=== PATIENT | male | born 1985 | race African-American/Black ===

== ENCOUNTER 2019-10-08 17:26 | Emergency (ER) | payer OTHER ==
[~2019-10-08] VITALS: Ht 185.4 cm; Wt 91.2 kg
[~2019-10-08 17:26] MED LIST: ADDERALL XR 2020 MG PO
[2019-10-08 19:42] LABS: ABSOLUTE NEUTROPHILS 3.1 thou/uL (1.4-8.2); BASOPHILS 0.7 % (0.0-2.0); EOSINOPHILS 1.9 % (0.0-3.0); HEMATOCRIT 42.9 % (42.0-52.0); HEMOGLOBIN 14.6 gm/dL (14.0-18.0); LYMPHOCYTES 37.5 % (24.0-44.0); MCH 30.1 pg (26.0-34.0); MCHC 34.2 g/dL (28.0-37.0); MCV 88.1 fL (80.0-100.0); MONOCYTES 9.4 % (1.0-8.0); PLATELET COUNT 307 thou/uL (150-400); POLYS 50.5 % (36.0-66.0); RBC 4.87 mil/uL (4.50-6.00); RDW 14.2 % (10.5-14.5); WBC 6.2 thou/uL (4.0-11.0)
[2019-10-08 19:54] LABS: CALCIUM 8.6 mg/dL (8.5-10.1); CREATININE 1.5 mg/dL (0.7-1.3); POTASSIUM 3.6 mmol/L (3.5-5.1)
[2019-10-08 19:56] LABS: AMP/METHAMP POSITIVE (Negative); BARBITURATES Negative (Negative); BENZODIAZEPINES Negative (Negative); COCAINE Negative (Negative); METHADONE Negative (Negative); OPIATES Negative (Negative); PCP Negative (Negative)
[2019-10-08 20:00] LABS: ALBUMIN 3.7 g/dL (3.4-5.0); TOTAL BILIRUBIN 1.2 mg/dL (0.2-1.0); TOTAL PROTEIN 6.9 g/dL (6.4-8.2)
[2019-10-10 08:22] VITALS: BP 125/73
== END 2019-10-10 09:04 | disposition home or self-care (01) ==
LOC: ER 17:26
PROVIDERS: Emergency Medicine
DX: F23 Brief psychotic disorder (principal); F19.151 Other psychoactive substance abuse with psychoactive substance-induced psychotic disorder with hallucinations; F15.10 Other stimulant abuse, uncomplicated; Z79.899 Other long term (current) drug therapy; Z20.828 Contact with and (suspected) exposure to other viral communicable diseases

== ENCOUNTER 2020-07-21 12:29 | Emergency (ER) | payer OTHER ==
[~2020-07-21] VITALS: Ht 188 cm; Wt 90.7 kg
[2020-07-21] MEDS ORDERED: NOHOMEMEDICATIONS (12:49)
[2020-07-21 12:56] LABS: URINE BILIRUBIN NEGATIVE (Negative); URINE BLOOD NEGATIVE (Negative); URINE CLARITY CLEAR; URINE COLOR YELLOW; URINE GLUCOSE-RANDOM* NEGATIVE (Negative); URINE KETONES NEGATIVE (Negative); URINE LEUKOCYTES-REFLEX NEGATIVE (Negative); URINE NITRITE-REFLEX NEGATIVE (Negative); URINE PROTEIN (DIPSTICK) NEGATIVE (Negative); URINE SPECIFIC GRAVITY >= 1.030 (1.005-1.035); URINE UROBILINOGEN 0.2 E.U./dl (0.2-1.0)
[2020-07-21 13:06] LABS: ABSOLUTE NEUTROPHILS 2.9 thou/uL (1.4-8.2); BASOPHILS 0.6 % (0.0-2.0); EOSINOPHILS 5.3 % (0.0-3.0); HEMATOCRIT 47.6 % (42.0-52.0); HEMOGLOBIN 15.9 gm/dL (14.0-18.0); LYMPHOCYTES 23.8 % (24.0-44.0); MCH 28.3 pg (26.0-34.0); MCHC 33.5 g/dL (28.0-37.0); MCV 84.4 fL (80.0-100.0); MONOCYTES 10.9 % (1.0-8.0); PLATELET COUNT 258 thou/uL (150-400); POLYS 59.4 % (36.0-66.0); RBC 5.63 mil/uL (4.50-6.00); RDW 16.3 % (10.5-14.5)
[2020-07-21 13:10] LABS: AMP/METHAMP POSITIVE (Negative); BARBITURATES Negative (Negative); BENZODIAZEPINES Negative (Negative); COCAINE Negative (Negative); METHADONE Negative (Negative); OPIATES Negative (Negative); PCP Negative (Negative)
[2020-07-21 13:28] LABS: ANION GAP 8 mmol/L (7-16); BUN 17 mg/dL (7-18); CALCIUM 9.6 mg/dL (8.5-10.1); CHLORIDE 104 mmol/L (98-107); CO2 31 mmol/L (21-32); CREATININE 1.3 mg/dL (0.7-1.3); GLUCOSE 93 mg/dL (74-106); POTASSIUM 3.9 mmol/L (3.5-5.1); SODIUM 143 mmol/L (136-145)
[2020-07-21 13:36] LABS: ALBUMIN 4.1 g/dL (3.4-5.0); MAGNESIUM 2.3 mg/dL (1.8-2.4); SALICYLATE < 2.8 mg/dL (2.8-20.0); SGOT 116 U/L (15-37); SGPT 389 U/L (16-63); TOTAL PROTEIN 8.3 g/dL (6.4-8.2)
[2020-07-21 15:45] VITALS: BP 122/54
--- NOTE | 2020-07-22 08:46 | EKG ---
[address] [address] [facility] [place] [address] ELECTROCARDIOGRAM REPORT Name: BERNARDO TOURE III [id number] Admission: 07/21/20 Attend Phys: Discharge: 07/21/20 Date of : [birth year] Report #: [id number] [facility] ED Test Date: 2020-07-21 Test Time: 13:08:05 Pat Name: BERNARDO TOURE Department: Room: Gender: [employer]: Amadeo Carnes : 1985 Requested By: Adrian Haque Order Number: [id number] MD: Cain Fontanez Measurements Intervals [place] Rate: 83 P: 62 NV: 147 QRS: 17 QRSD: 92 T: 21 QT: 387 QTc: 455 Interpretive Statements Sinus rhythm No significant abnormality Compared to ECG 11/21/2017 14:30:41 Sinus tachycardia no longer present Electronically Signed On 07-22-2020 8:46:17 CDT by Cain Fontanez [email or web address] <ELECTRONICALLY SIGNED> By: Cian Fontanez MD, [facility] 07/22/20 0846 [id number] Cain Fontanez MD, FACC /EPI
== END 2020-07-21 16:00 ==
LOC: ER 12:29
PROVIDERS: Emergency Medicine
DX: F19.10 Other psychoactive substance abuse, uncomplicated (principal); F10.139 Alcohol abuse with withdrawal, unspecified; Y90.0 Blood alcohol level of less than 20 mg/100 ml

== ENCOUNTER 2020-09-03 22:14 | Emergency (ER) | payer OTHER ==
[~2020-09-03] VITALS: Ht 175.3 cm; Wt 79.4 kg
[~2020-09-03 22:14] MED LIST changes: +NOHOMEMEDICATIONS
[2020-09-03 23:13] LABS: URINE BILIRUBIN NEGATIVE (Negative); URINE BLOOD NEGATIVE (Negative); URINE CLARITY CLEAR; URINE COLOR YELLOW; URINE GLUCOSE-RANDOM* NEGATIVE (Negative); URINE KETONES NEGATIVE (Negative); URINE LEUKOCYTES-REFLEX NEGATIVE (Negative); URINE NITRITE-REFLEX NEGATIVE (Negative); URINE PROTEIN (DIPSTICK) NEGATIVE (Negative); URINE SPECIFIC GRAVITY 1.015 (1.005-1.035); URINE UROBILINOGEN 0.2 E.U./dl (0.2-1.0)
[2020-09-03 23:15] LABS: ABSOLUTE NEUTROPHILS 3.1 thou/uL (1.4-8.2); BASOPHILS 0.4 % (0.0-2.0); EOSINOPHILS 1.3 % (0.0-3.0); HEMATOCRIT 40.6 % (42.0-52.0); HEMOGLOBIN 13.6 gm/dL (14.0-18.0); MCH 29.2 pg (26.0-34.0); MCHC 33.6 g/dL (28.0-37.0); MCV 87.1 fL (80.0-100.0); MONOCYTES 11.1 % (1.0-8.0); PLATELET COUNT 243 thou/uL (150-400); POLYS 56.2 % (36.0-66.0); RBC 4.66 mil/uL (4.50-6.00); WBC 5.4 thou/uL (4.0-11.0)
[2020-09-03 23:23] LABS: ANION GAP 6 mmol/L (7-16); BUN 21 mg/dL (7-18); CHLORIDE 103 mmol/L (98-107); CO2 29 mmol/L (21-32); CREATININE 1.4 mg/dL (0.7-1.3); GLUCOSE 107 mg/dL (74-106); POTASSIUM 4.2 mmol/L (3.5-5.1); SODIUM 138 mmol/L (136-145)
[2020-09-03 23:24] LABS: AMP/METHAMP POSITIVE (Negative); BARBITURATES Negative (Negative); BENZODIAZEPINES Negative (Negative); COCAINE Negative (Negative); METHADONE Negative (Negative); OPIATES Negative (Negative); PCP Negative (Negative)
[2020-09-03 23:30] LABS: ALBUMIN 3.7 g/dL (3.4-5.0); SALICYLATE < 2.8 mg/dL (2.8-20.0); SGOT 84 U/L (15-37); SGPT 188 U/L (16-63); TOTAL BILIRUBIN 0.8 mg/dL (0.2-1.0)
[2020-09-04 05:32] VITALS: BP 123/74
--- NOTE | 2020-09-04 06:45 | EKG ---
[address] [address] [employer] 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1985 Requested By: Adrian Haque Order Number: [id number] MD: Gustabo Ramos Measurements Intervals [place] Rate: 120 P: 55 [place]: 120 QRS: 2 QRSD: 79 T: 20 QT: 307 QTc: 434 Interpretive Statements Sinus tachycardia Borderline T wave abnormalities Baseline wander in lead(s) V3 Compared to ECG 07/21/2020 13:08:05 T-wave abnormality now present Sinus rhythm no longer present Electronically Signed On 09-04-2020 6:44:59 CDT by Gustabo Ramos [email or web address] <ELECTRONICALLY SIGNED> By: Gustabo Ramos MD, [facility] 09/04/20 [id number] [id number] Gustabo Ramos MD, FACC /EPI
== END 2020-09-04 05:33 | disposition home or self-care (01) ==
LOC: ER 22:14
PROVIDERS: Emergency Medicine
DX: F29 Unspecified psychosis not due to a substance or known physiological condition (principal); F15.10 Other stimulant abuse, uncomplicated